=== PATIENT | female | born 1940 | race Caucasian/White ===

== ENCOUNTER → 2016-12-20 | Outpatient (CLI) | payer OTHER, MEDICARE | LOC: FIMAGING 14:04 | DX: Z12.31 Encounter for screening mammogram for malignant neoplasm of breast (principal); Z13.820 Encounter for screening for osteoporosis; M85.80 Other specified disorders of bone density and structure, unspecified site; Z85.3 Personal history of malignant neoplasm of breast; Z80.3 Family history of malignant neoplasm of breast | CPT/HCPCS: G0202 ==

== ENCOUNTER → 2017-12-21 | Outpatient (CLI) | payer OTHER, MEDICARE | LOC: FIMAGING 12:50 | PROVIDERS: ATTEND Family Medicine | DX: Z12.31 Encounter for screening mammogram for malignant neoplasm of breast (principal); Z80.3 Family history of malignant neoplasm of breast; Z85.3 Personal history of malignant neoplasm of breast ==

== ENCOUNTER → 2019-01-15 | Outpatient (CLI) | payer OTHER, MEDICARE | LOC: FIMAGING 13:12 ==